=== PATIENT | male | born 1960 | race Caucasian/White ===

== ENCOUNTER 2017-04-10 14:07 | Emergency (ER) | payer BC, OTHER ==
[2017-04-10 14:16] VITALS: BP 135/77
--- NOTE | 2017-04-10 14:34 | EDM.PDOC ---
ED HPI GENERAL MEDICAL PROBLEM - General Chief Complaint: Upper Extremity Injury/Pain Stated Complaint: RIGHT POINTER FINGER INJURY Time Seen by Provider: 04/10/17 14:14 Source of Information: Reports: Patient History Limitations: Reports: No Limitations - History of Present Illness INITIAL COMMENTS - FREE TEXT/NARRATIVE: The patient was working on some brakes on Sunday and the calliper slipped and crushed the tip of his right index finger. He is right handed. He has blood under the nail. He has no fever or chills but there is some edema and erythema to the base of the nail. He is diabetic. Onset: Sudden Duration: Day(s): (Sunday) Location: Reports: Upper Extremity, Right (Index finger) Quality: Reports: Ache Severity: Moderate Improves with: Reports: None Worsens with: Reports: None Context: Reports: Activity (Working on some brakes) Associated Symptoms: Reports: No Other Symptoms Right Hand Pain Score (Numeric/FACES): 7 - Related Data Allergies Allergy/AdvReac Type Severity Reaction Status Date / Time No Known Allergies Allergy Verified 04/10/17 14:16 Home Meds: Home Meds Acyclovir [Zovirax] 800 mg PO QID #40 tablet 07/25/15 [Rx] Aspirin [Children's Aspirin] 1 tab PO DAILY 07/25/15 [History] Lisinopril 10 mg PO DAILY 07/25/15 [History] Pravastatin [Pravachol] 10 mg PO BEDTIME 07/25/15 [History] glipiZIDE [Glipizide ER] 1 tab PO DAILY 07/25/15 [History] metFORMIN [Glucophage] 1,000 mg PO BIDMEALS 07/25/15 [History] Exenatide Microspheres [Bydureon Pen] 0 mg INJECT WEEKLY 07/26/15 [History] predniSONE [Prednisone] 60 mg PO DAILY #21 tablet 08/01/15 [Rx] Cephalexin [Keflex] 500 mg PO Q6HR #40 cap 04/10/17 [Rx] Ibuprofen [Motrin] 800 mg PO Q6H PRN #30 tablet 04/10/17 [Rx] Past Medical History Cardiovascular History: Reports: High Cholesterol, Hypertension Endocrine/Metabolic History: Reports: Diabetes, Type II Dermatologic History: Reports: Other (See Below) Other Dermatologic History: rashes to right side of neck & ear, right arm- shingles - Infectious Disease History Infectious Disease History: Reports: Chicken Pox, Measles, Shingles Social & Family History - Tobacco Use Smoking Status *Q: Never Smoker - Recreational Drug Use Recreational Drug Use: No Review of Systems - Review of Systems Review Of Systems: See Below Constitutional: Reports: No Symptoms Eyes: Reports: No Symptoms Ears: Reports: No Symptoms Nose: Reports: No Symptoms Mouth/Throat: Reports: No Symptoms Respiratory: Reports: No Symptoms Cardiovascular: Reports: No Symptoms GI/Abdominal: Reports: No Symptoms Genitourinary: Reports: No Symptoms Musculoskeletal: Reports: Other (Trauma to his right index finger) ED EXAM, GENERAL - Physical Exam Exam: See Below Exam Limited By: No Limitations General Appearance: Alert, No Apparent Distress Ears: Normal External Exam Nose: Normal Inspection Head: Atraumatic, Normocephalic Neck: Normal Inspection Respiratory/Chest: No Respiratory Distress Extremities: Other (Subungual hematoma to the right index finger. Pain upon palpation to the finger. Erythema to the base of the finger.) Course - Vital Signs Last Recorded V/S: Last Vital Signs Temp 98.1 F 04/10/17 14:14 Pulse 85 04/10/17 14:14 Resp 16 04/10/17 14:14 BP 135/77 04/10/17 14:14 Pulse Ox 95 04/10/17 14:14 - Orders/Labs/Meds Orders: Active Orders 24 hr Category Date Time Status Fingers Second Digit Rt F6 [CR] Stat Exams 04/10/17 14:28 Taken - Re-Assessments/Exams Free Text/Narrative Re-Assessment/Exam: 04/10/17 14:33 I have ordered an x-ray of his finger. 04/10/17 14:55 His finger x-ray does not show a fracture. I will get him on some keflex and motrin for the pain. Departure - Departure Time of Disposition: 15:00 Disposition: Home, Self-Care 01 Condition: Good Clinical Impression: Crushing injury of finger of right hand, Cellulitis of finger of right hand Subungual hematoma of finger Qualifiers: Encounter type: initial encounter Qualified Code(s): S60.10XA - Contusion of unspecified finger with damage to nail, initial encounter - Discharge Information Prescriptions: Cephalexin [Keflex] 500 mg PO Q6HR #40 cap Ibuprofen [Motrin] 800 mg PO Q6H PRN #30 tablet PRN Reason: Pain Referrals: Cheryl Abdi PA-C [Primary Care Provider] - Forms: ED Department Discharge Additional Instructions: Soak your finger in warm soapy water 2 times per day for 5 days. Take the keflex every 6 hours until gone. Take motrin as needed. Please return if you are worse. - My Orders Last 24 Hours: My Active Orders 04/10/17 14:28 Fingers Second Digit Rt F6 [CR] Stat - Assessment/Plan Last 24 Hours: My Active Orders 04/10/17 14:28 Fingers Second Digit Rt F6 [CR] Stat
--- NOTE | 2017-04-10 15:26 | CR ---
Right second finger: Four views of the right second finger were obtained. Comparison: No previous study. Joint spaces are preserved. No fracture, dislocation or other bony abnormality is identified. Impression: 1. Nothing acute is identified on right second finger study. Diagnostic code #1
== END 2017-04-10 15:05 | disposition home or self-care (01) ==
LOC: JD.ED 14:07
DX: S67.190A Crushing injury of right index finger, initial encounter (principal); S60.121A Contusion of right index finger with damage to nail, initial encounter; L03.113 Cellulitis of right upper limb; I10 Essential (primary) hypertension; E78.00 Pure hypercholesterolemia, unspecified; E11.9 Type 2 diabetes mellitus without complications; Z79.84 Long term (current) use of oral hypoglycemic drugs; Z79.899 Other long term (current) drug therapy; Z79.82 Long term (current) use of aspirin; W23.0XXA Caught, crushed, jammed, or pinched between moving objects, initial encounter; Y93.89 Activity, other specified; Y99.0 Civilian activity done for income or pay
CPT/HCPCS: 73140-26-F6; 73140-F6; 99283

== ENCOUNTER 2017-12-27 14:19 | Emergency (ER) | payer BC, OTHER ==
[2017-12-27 14:28] VITALS: BP 170/87
--- NOTE | 2017-12-27 14:44 | EDM.PDOC ---
ED HPI GENERAL MEDICAL PROBLEM - General Chief Complaint: Lower Extremity Injury/Pain Stated Complaint: INJURY TO TOES ON R FOOT Time Seen by Provider: 12/27/17 14:26 Source of Information: Reports: Patient History Limitations: Reports: No Limitations - History of Present Illness INITIAL COMMENTS - FREE TEXT/NARRATIVE: The patient presents with right foot pain. He stubbed his toes last night stepping up on his deck. He has no other injuries. Onset: Sudden Duration: Day(s): (Last night) Location: Reports: Lower Extremity, Right (2nd and 3rd toes) Quality: Reports: Sharp Severity: Moderate Improves with: Reports: Immobilization Worsens with: Reports: Movement Associated Symptoms: Reports: No Other Symptoms right toes Pain Score (Numeric/FACES): 2 - Related Data Allergies Allergy/AdvReac Type Severity Reaction Status Date / Time No Known Allergies Allergy Verified 12/27/17 14:28 Home Meds: Home Meds Aspirin [Children's Aspirin] 1 tab PO DAILY 07/25/15 [History] Lisinopril 10 mg PO DAILY 07/25/15 [History] Pravastatin [Pravachol] 10 mg PO BEDTIME 07/25/15 [History] glipiZIDE [Glipizide ER] 1 tab PO DAILY 07/25/15 [History] metFORMIN [Glucophage] 1,000 mg PO BIDMEALS 07/25/15 [History] Exenatide Microspheres [Bydureon Pen] 0 mg INJECT WEEKLY 07/26/15 [History] Ibuprofen [Motrin] 800 mg PO Q6H PRN #30 tablet 04/10/17 [Rx] Ibuprofen 800 mg PO Q8HR PRN #30 tablet 12/27/17 [Rx] Past Medical History HEENT History: Reports: Impaired Vision Cardiovascular History: Reports: High Cholesterol, Hypertension Endocrine/Metabolic History: Reports: Diabetes, Type II Dermatologic History: Reports: Other (See Below) Other Dermatologic History: rashes to right side of neck & ear, right arm- shingles - Infectious Disease History Infectious Disease History: Reports: Chicken Pox, Measles, Shingles Social & Family History - Family History Family Medical History: Noncontributory - Tobacco Use Smoking Status *Q: Never Smoker - Caffeine Use Caffeine Use: Reports: Soda - Recreational Drug Use Recreational Drug Use: No Review of Systems - Review of Systems Review Of Systems: See Below Constitutional: Reports: No Symptoms Ears: Reports: No Symptoms Nose: Reports: No Symptoms Mouth/Throat: Reports: No Symptoms Respiratory: Reports: No Symptoms Cardiovascular: Reports: No Symptoms GI/Abdominal: Reports: No Symptoms Genitourinary: Reports: No Symptoms Musculoskeletal: Reports: Other (Right toe and foot pain) ED EXAM, GENERAL - Physical Exam Exam: See Below Exam Limited By: No Limitations General Appearance: Alert, No Apparent Distress Ears: Normal External Exam Nose: Normal Inspection Head: Atraumatic, Normocephalic Neck: Normal Inspection Respiratory/Chest: No Respiratory Distress Extremities: Other (Pain upon palpation, edema and ecchymosis to the 2nd and 3rd toe. No pain to the foot) Course - Vital Signs Last Recorded V/S: Last Vital Signs Temp 97.8 F 12/27/17 14:20 Pulse 84 12/27/17 14:20 Resp 18 12/27/17 14:20 BP 170/87 H 12/27/17 14:20 Pulse Ox 97 12/27/17 14:20 - Orders/Labs/Meds Orders: Active Orders 24 hr Category Date Time Status Foot Comp Min 3V Rt [CR] Stat Exams 12/27/17 14:44 Taken - Re-Assessments/Exams Free Text/Narrative Re-Assessment/Exam: 12/27/17 15:49 His x-ray shows a fracture of the 2nd and 3rd toes. Departure - Departure Time of Disposition: 15:50 Disposition: Home, Self-Care 01 Condition: Good Clinical Impression: Toes fractured Qualifiers: Encounter type: initial encounter Toe: lesser toe Fracture type: closed Phalanx : distal Fracture alignment: nondisplaced Laterality: right Qualified Code(s): S92.534A - Nondisplaced fracture of distal phalanx of right lesser toe(s), initial encounter for closed fracture - Discharge Information Prescriptions: Ibuprofen 800 mg PO Q8HR PRN #30 tablet PRN Reason: Pain Referrals: PCP,Not In Area [Ordering Only Provider] - Donovan Bynum MD [Physician] - 1 Week Forms: ED Department Discharge Additional Instructions: Ice your foot and toes for 15 minutes 3 times per day for 2 days. Take motrin every 8 hours as needed for pain. Wear a stiff soled shoe for comfort. Follow up with Dr Bynum our orthopedic surgeon if you do not feel better in 1 to 2 weeks. Please return if you are worse. - My Orders Last 24 Hours: My Active Orders 12/27/17 14:44 Foot Comp Min 3V Rt [CR] Stat - Assessment/Plan Last 24 Hours: My Active Orders 12/27/17 14:44 Foot Comp Min 3V Rt [CR] Stat
--- NOTE | 2017-12-27 16:26 | CR ---
Right foot: Four views of the right foot were obtained. Comparison: No previous study. Small plantar spur is seen. Slight vascular calcification is noted. Portion of the bone within the third toe is missing which appears to be old as the residual margins are sclerotic. Slight bony irregularity is seen within the distal fifth metatarsal. Difficult to completely exclude a minimally impacted fracture. This may also be old if patient has no acute symptoms to this region. No acute erosions are seen. No acute fracture or other bony abnormality is appreciated. Impression: 1. Questionable fracture within the distal fifth metatarsal. If patient has no symptoms to this area this is likely due to old injury. 2. Other incidental findings as noted above. Diagnostic code #3
== END 2017-12-27 16:30 | disposition home or self-care (01) ==
LOC: JD.ED 14:19
DX: S92.534A Nondisplaced fracture of distal phalanx of right lesser toe(s), initial encounter for closed fracture (principal); E78.00 Pure hypercholesterolemia, unspecified; I10 Essential (primary) hypertension; E11.9 Type 2 diabetes mellitus without complications; Z79.82 Long term (current) use of aspirin; Z79.899 Other long term (current) drug therapy; W22.03XA Walked into furniture, initial encounter
CPT/HCPCS: 73630-26-RT; 73630-RT; 99283